=== PATIENT | male | born 1965 | race Two or more races ===

== ENCOUNTER 2018-04-27 09:42 | Emergency (ER) | payer OTHER ==
[2018-04-27 09:53] VITALS: BP 96/61; PULSE 62; TEMP 98.6; BMI 33.2
[2018-04-27] MEDS ORDERED: INDOMETHACIN 50 MG CAPSULE PO ONE (10:08)
[2018-04-27] MEDS ORDERED: predniSONE 20 MG TABLET (UD) PO ONE (10:08)
[2018-04-27] MEDS ORDERED: predniSONE 20 MG TABLET (UD) ONE (10:11)
--- NOTE | 2018-04-27 10:14 | PDOC ---
History of Present Illness - General Chief Complaint: Edema Stated Complaint: RT FOOT PAIN Time Seen by Provider: 04/27/18 09:59 History Source: Patient Exam Limitations: No Limitations - History of Present Illness Initial Comments: 04/27/18 15:30 52 yr male c/o history of gout recently relocated to [place] from [facility] he ate a bag of M&M candy yesterday and today woke up with pain to the right great toe, redness noted with swelling. no fever no chills. 04/27/18 15:30 Past History - Past Medical History Allergies/Adverse Reactions: Allergies Allergy/AdvReac Type Severity Reaction Status Date / Time No Known Allergies Allergy Verified 04/27/18 10:01 Home Medications: Ambulatory Orders Indomethacin [Indocin -] 50 mg PO BID 04/27/18 Lisinopril 20 mg PO DAILY 04/27/18 Prednisone [Deltasone] 20 mg PO BID #14 tablet 04/27/18 COPD: No CHF: No HTN: Yes Other medical history: gout - Immunization History Immunization Up to Date: No - Suicide/Smoking/Psychosocial Hx Smoking History: Current some day smoker Have you smoked in the past 12 months: No Information on smoking cessation initiated: No Hx Alcohol Use: No Drug/Substance Use Hx: No Substance Use Type: None Review of Systems - Review of Systems Able to Perform ROS?: Yes Is the patient limited Swedish proficient: No Constitutional: No: Symptoms Reported HEENTM: No: Symptoms Reported Respiratory: No: Symptoms reported Cardiac (ROS): No: Symptoms Reported ABD/GI: No: Symptoms Reported Musculoskeletal: Yes: Symptoms Reported *Physical Exam - Vital Signs Last Vital Signs Temp Pulse Resp BP Pulse Ox 98.6 F 62 16 96/61 98 04/27/18 09:49 04/27/18 09:49 04/27/18 09:49 04/27/18 09:49 04/27/18 09:49 - Physical Exam General Appearance: Yes: Nourished, Appropriately Dressed HEENT: positive: EOMI, HUGO Neck: positive: Supple. negative: Tender Respiratory/Chest: positive: Lungs Clear, Normal Breath Sounds. negative: Chest Tender Cardiovascular: positive: Regular Rhythm, Regular Rate Musculoskeletal: positive: Normal Inspection Extremity: positive: Normal Capillary Refill, Normal Inspection, Normal Range of Motion, Tender (red tender great toe right foot ), Other Integumentary: positive: Normal Color, Dry, Warm Medical Decision Making - Medical Decision Making 04/27/18 15:36 cc: gout flare up right great toe, same symptoms in the past no fever no chills pt tookk indocin 50mg at 630am will start prednisone continue indocin follow up with podiatry as discussed pt understands the dc inst is aware as well, will avoid chocolate meds as directed, warm compresses all questions asked and answered at discharge *DC/Admit/Observation/Transfer Diagnosis at time of Disposition: Gout Qualifiers: Gout site: toe Gout etiology: other secondary cause Chronicity: acute Laterality: right Qualified Code(s): M10.471 - Other secondary gout, right ankle and foot - Discharge Dispostion Disposition: HOME Condition at time of disposition: Improved - Prescriptions Prescriptions: Prednisone [Deltasone] 20 mg PO BID #14 tablet - Referrals Referrals: Stuart Deal MD [Staff Physician] - Moo Blanchard MD [Staff Physician] - - Patient Instructions Additional Instructions: take prednisone as directed next dose tomorrow morning take indocin 3 times a day as directed, next dose at 230pm apply warm compresses to the toe follow with the onboarding specialist Dr. Blanchard call today to make appointment follow with Dr. Deal for primary care return if fever chills any worsening pain - Post Discharge Activity
== END 2018-04-27 10:33 | disposition home or self-care (01) ==
LOC: JERFT 09:42
DX: M10.471 Other secondary gout, right ankle and foot (principal); F17.210 Nicotine dependence, cigarettes, uncomplicated; I10 Essential (primary) hypertension
CPT/HCPCS: 99281-25

== ENCOUNTER 2018-11-10 07:51 | Emergency (ER) | payer OTHER ==
[2018-11-10 08:15] VITALS: BP 138/81; PULSE 70; TEMP 97.9; BMI 36.6
--- NOTE | 2018-11-10 08:52 | PDOC ---
History of Present Illness - General Chief Complaint: Pain Stated Complaint: GOUT PROBLEM Time Seen by Provider: 11/10/18 08:29 History Source: Patient Exam Limitations: No Limitations - History of Present Illness Initial Comments: 11/10/18 09:00 Patient came for evaluation of acute and worsening exacerbation of gout. Suffers frequently in left foot and great toe. Uses ibuprofen. States has never seen a specialist[facility]. Occurred: reports: last week Severity: reports: moderate, severe Pain Location: reports: lower extremity (lef tfoot and great toe) Method of Injury: Yes: unknown Associated Symptoms (Fall): denies symptoms Past History - Travel Traveled outside of the country in the last 30 days: No Close contact w/someone who was outside of country & ill: No - Past Medical History Allergies/Adverse Reactions: Allergies Allergy/AdvReac Type Severity Reaction Status Date / Time No Known Allergies Allergy Verified 11/10/18 08:11 Home Medications: Ambulatory Orders Indomethacin [Indocin -] 50 mg PO BID 04/27/18 Lisinopril 20 mg PO DAILY 04/27/18 Prednisone [Deltasone] 20 mg PO BID #14 tablet 04/27/18 Indomethacin [Indocin -] 50 mg PO BID #60 capsule 11/10/18 predniSONE [Deltasone -] 20 mg PO BID #10 tablet 11/10/18 COPD: No CHF: No HTN: Yes Hypercholesterolemia: Yes - Immunization History Immunization Up to Date: No - Suicide/Smoking/Psychosocial Hx Smoking History: Never smoked Have you smoked in the past 12 months: No Hx Alcohol Use: No Drug/Substance Use Hx: No Substance Use Type: None Review of Systems - Review of Systems Able to Perform ROS?: Yes Is the patient limited Romansh proficient: Yes Constitutional: Yes: Symptoms Reported, See HPI, Malaise. No: Fever HEENTM: Yes: See HPI. No: Symptoms Reported Respiratory: No: Symptoms reported Musculoskeletal: Yes: Symptoms Reported, See HPI, Gout, Joint Swelling, Joint Stiffness Integumentary: Yes: Symptoms Reported, See HPI, Erythema Neurological: No: Symptoms reported All Other Systems: Reviewed and Negative *Physical Exam - Vital Signs Last Vital Signs Temp Pulse Resp BP Pulse Ox 97.9 F 70 18 138/81 99 11/10/18 08:12 11/10/18 08:12 11/10/18 08:12 11/10/18 08:12 11/10/18 08:12 - Physical Exam General Appearance: Yes: Nourished, Appropriately Dressed, Apparent Distress, Moderate Distress HEENT: positive: HUGO, Normal ENT Inspection, TMs Normal, Pharynx Normal Neck: positive: Supple Musculoskeletal: positive: Decreased Range of Motion. negative: Normal Inspection Extremity: negative: Normal Inspection, Normal Range of Motion (limited range of motion with heat, point tenderness, and swelling to first metatarsal extending to great toe and midfoot. Able to move toes but with tenderness. Walks with cane and significant limp. All consistent patient reports with his gout flares. There is no puncture wound, any ulcerations, any evidence of open wound to foot or between toes.) Integumentary: positive: Dry, Warm, Erythema Neurologic: positive: firmware developer II-XII NML intact, Fully Oriented, Alert, Normal Mood/ Affect, Normal Response, Motor Strength 5/5 Progress Note - Progress Note Progress Note: Gout exacerbation, will treat with prednisone and indomethacin. Patient encouraged to follow-up at [place] for frequent gout exacerbations. *DC/Admit/Observation/Transfer Diagnosis at time of Disposition: Gout Qualifiers: Gout site: foot Gout etiology: unspecified cause Chronicity: acute Laterality: left Qualified Code(s): M10.9 - Gout, unspecified - Discharge Dispostion Disposition: HOME Condition at time of disposition: Stable Decision to Admit order: No - Prescriptions Prescriptions: Indomethacin [Indocin -] 50 mg PO BID #60 capsule predniSONE [Deltasone -] 20 mg PO BID #10 tablet - Referrals Referrals: Sasha Zavala MD [Primary Care Provider] - - Patient Instructions Printed Discharge Instructions: DI for Gout Additional Instructions: Rest, ice to area on and off for 15 minutes 4-6 times a day Avoid heavy lifting or exercise until pain and swelling is resolved or until further directed Keep area highly elevated to reduce swelling Followup with orthopedist/ teletypesetter in one to 2 days if not improving, if significantly improved may wait one week for followup with private physician Indomethacin, 50 mg equaled 2 tablets every 12 hours with food in her stomach for the next 2-3 days and then reduced by half= 25mg tab twice a day for pain until resolves Prednisone 20 mg twice a day for 5 days - Post Discharge Activity
== END 2018-11-10 09:05 | disposition home or self-care (01) ==
LOC: JERFT 07:51
DX: M10.9 Gout, unspecified (principal); I10 Essential (primary) hypertension; E78.00 Pure hypercholesterolemia, unspecified
CPT/HCPCS: 99281-25

== ENCOUNTER 2019-02-02 08:52 | Emergency (ER) | payer OTHER ==
[2019-02-02 09:00] VITALS: BP 138/77; PULSE 85; TEMP 97.8; BMI 34.7
[2019-02-02] MEDS ORDERED: KETOROLAC TROMETHAMINE 60 MG/2 ML VIAL IM ONE (09:10)
[2019-02-02] MEDS ORDERED: KETOROLAC TROMETHAMINE 60 MG/2 ML VIAL ONE (09:12)
--- NOTE | 2019-02-02 09:29 | PDOC ---
History of Present Illness - General Chief Complaint: Edema Stated Complaint: UNABLE TO MOVE RT ARM Time Seen by Provider: 02/02/19 09:05 History Source: Patient Exam Limitations: Clinical Condition - History of Present Illness Initial Comments: 02/02/19 09:24 Patient with past medical history of hypertension on meds present with complaint of 2 day history of right elbow pain and swelling after being bit by a bug of unknown number of days .patient does not know what pain to right elbow but reported elbow has been swelling up with pain radiating to right forearm and fingers. Denies right upper arm pain. Denies fever, chills, weakness, numbness or tingling sensation. Denies any other symptoms. Patient did not take anything for symptoms Timing/Duration: other (2 days) Past History - Past Medical History Allergies/Adverse Reactions: Allergies Allergy/AdvReac Type Severity Reaction Status Date / Time No Known Allergies Allergy Verified 02/02/19 08:56 Home Medications: Ambulatory Orders Indomethacin [Indocin -] 50 mg PO BID 04/27/18 Lisinopril 20 mg PO DAILY 04/27/18 Prednisone [Deltasone] 20 mg PO BID #14 tablet 04/27/18 Indomethacin [Indocin -] 50 mg PO BID #60 capsule 11/10/18 predniSONE [Deltasone -] 20 mg PO BID #10 tablet 11/10/18 Doxycycline Hyclate 100 mg PO BID 14 Days #28 tablet 02/02/19 Naproxen 500 mg PO BID PRN #20 tablet 02/02/19 Cardiac Disorders: Yes (CHF) COPD: No CHF: No HTN: Yes Hypercholesterolemia: Yes - Immunization History Immunization Up to Date: No - Suicide/Smoking/Psychosocial Hx Smoking History: Current every day smoker Have you smoked in the past 12 months: No Information on smoking cessation initiated: No Hx Alcohol Use: No Drug/Substance Use Hx: No Substance Use Type: None Review of Systems - Review of Systems Able to Perform ROS?: Yes Is the patient limited Yi proficient: No Constitutional: No: Malaise, Weakness HEENTM: No: Symptoms Reported Respiratory: No: Symptoms reported Cardiac (ROS): No: Symptoms Reported ABD/GI: No: Symptoms Reported Musculoskeletal: Yes: Symptoms Reported, See HPI, Joint Swelling (right elbow), Muscle Pain (right elbow). No: Muscle Weakness Integumentary: Yes: Symptoms Reported, See HPI, Other (bug bite nehemiah to back of right elbow). No: Erythema, Flushing, Rash Neurological: No: Symptoms reported, Numbness, Paresthesia, Tingling All Other Systems: Reviewed and Negative *Physical Exam - Vital Signs Last Vital Signs Temp Pulse Resp BP Pulse Ox 97.8 F 85 18 138/77 98 02/02/19 08:58 02/02/19 08:58 02/02/19 08:58 02/02/19 08:58 02/02/19 08:58 - Physical Exam Comments: 02/02/19 09:30 GENERAL: Well developed, well nourished. Awake and alert acute distress. PULMONARY: No evidence of respiratory distress. MUSCULOSKELETAL : mild swelling to olecranon of right elbow with moderate tenderness over dorsal aspect of right elbow. Small inset bite nehemiah to olecranon of right elbow. No joint effusion on exam. No bony deformities EXTREMITIES: No cyanosis. No clubbing. Mild swelling over olecranon of right elbow SKIN: Warm and dry. Normal capillary refill. No rashes. NEUROLOGICAL: Alert, awake, appropriate. No motor deficits in the lower extremities. Gait is normal without ataxia. PSYCHIATRIC: Cooperative. Good eye contact. Appropriate mood and affect. General Appearance: Yes: Nourished, Appropriately Dressed, Apparent Distress, Moderate Distress ED Treatment Course - RADIOLOGY Radiology Studies Ordered: Category Date Time Status ELBOW-RIGHT [RAD] Stat Radiology 02/02/19 09:09 Ordered - Medications Given in the ED: ED Medications Discontinued Medications Generic Name Dose Route Start Last Admin Trade Name Freq PRN Reason Stop Dose Admin Ketorolac Tromethamine 60 mg 02/02/19 09:10 02/02/19 09:19 Toradol Injection - IM 02/02/19 09:11 60 mg ONCE ONE Administration Medical Decision Making - Medical Decision Making 02/02/19 09:26 Patient with past medical history of hypertension on meds present with complaint of 2 day history of right elbow pain and swelling after being bit by a bug of unknown number of days .patient does not know what pain to right elbow but reported elbow has been swelling up with pain radiating to right forearm and fingers. Denies right upper arm pain. Denies fever, chills, weakness, numbness or tingling sensation. Denies any other symptoms. Patient did not take anything for symptoms Exam significant for mild swelling to olecranon of right elbow around area of small bug bite nehemiah olecranon of right elbow with moderate tenderness over olecranon of right elbow. No skin erythema or increased warmth. No evidence of joint effusion on exam. Symptoms likely reaction from bug bite versus less likely Lyme disease given no erythema migrans or rash to skin. Toradol 60 mg IM given for pain. X-ray of left elbow ordered to rule out acute pathology 02/02/19 09:57 X-ray of right elbow shows no acute fracture or dislocation or pathology. Patient will be treated on doxycycline twice a day for 2 weeks for joint infection and naproxen when necessary for pain with orthopedist follow-up *DC/Admit/Observation/Transfer Diagnosis at time of Disposition: Pain and swelling of right elbow Bug bite Qualifiers: Encounter type: initial encounter Qualified Code(s): W57.XXXA - Bitten or stung by nonvenomous insect and other nonvenomous arthropods, initial encounter - Discharge Dispostion Disposition: HOME Condition at time of disposition: Stable Decision to Admit order: No - Prescriptions Prescriptions: Doxycycline Hyclate 100 mg PO BID 14 Days #28 tablet Naproxen 500 mg PO BID PRN #20 tablet PRN Reason: pain - Referrals Referrals: Sasha Zavala MD [Primary Care Provider] - Michael Pinto DO [Staff Physician] - - Patient Instructions Printed Discharge Instructions: DI for Elbow Pain Additional Instructions: Your right elbow x-ray shows no acute fracture or dislocation. Your symptoms likely caused by the bug bite and take prescribed medication as prescribed. Follow-up referred orthopedics for follow-up assessment - Post Discharge Activity
== END 2019-02-02 09:59 | disposition home or self-care (01) ==
LOC: JERFT 08:52
PROC: 3E0233Z Introduction of Anti-inflammatory into Muscle, Percutaneous Approach (ICD-10-PCS; principal; 2019-02-02)
DX: S50.361A Insect bite (nonvenomous) of right elbow, initial encounter (principal); W57.XXXA Bitten or stung by nonvenomous insect and other nonvenomous arthropods, initial encounter; Y93.89 Activity, other specified; Y92.89 Other specified places as the place of occurrence of the external cause; Y99.8 Other external cause status
CPT/HCPCS: 73070-TC-RT-FY; 99282-25

== ENCOUNTER 2020-01-14 13:29 | Emergency (ER) | payer OTHER ==
[2020-01-14 13:37] VITALS: BP 129/82; PULSE 100; TEMP 98.2; BMI 37.5
--- NOTE | 2020-01-14 13:38 | PDOC ---
Rapid Medical Evaluation Chief Complaint: Pain Time Seen by Provider: 01/14/20 13:30 Medical Evaluation: Allergies Allergy/AdvReac Type Severity Reaction Status Date / Time No Known Allergies Allergy Verified 02/02/19 08:56 01/14/20 13:35 I performed a brief in-person evaluation of this patient. Pt is a 54 y/o male with CHF, CAD, gout with R foot and ankle swelling and pain for the last 4 days. Took Tylenol, ibuprofen, colchicine, allopurinol without any relief. Denies any injury. Pertinent physical exam findings: R foot and ankle swelling and tender to palpation, brace in place I have ordered the following: R foot and ankle xr Patient to proceed to ED for further evaluation. Discharge Disposition - Diagnosis Right foot pain - Referrals - Patient Instructions - Post Discharge Activity
--- NOTE | 2020-01-14 14:15 | PDOC ---
History of Present Illness - General Chief Complaint: Pain Stated Complaint: RT FOOT PAIN Time Seen by Provider: 01/14/20 13:30 History Source: Patient Exam Limitations: No Limitations - History of Present Illness Initial Comments: 01/14/20 14:11 54-year-old male presents to ED with complaints of right foot swelling associated first with left ankle and left toe pain. Patient states has recurrent gout over the past year and is under the care of Dr. Lynn but states has had gout for numerous years. Patient denies any history of clots or poor circulation to his legs. Patient does state history of CHF but has no complaints of bilateral lower extremity swelling or difficulty breathing. Is this a multiple visit Asthma Patient?: No Timing/Duration: constant Severity: mild Associated Symptoms: reports: denies symptoms Past History - Travel History Traveled outside of the country in the last 30 days: No Close contact w/someone who was outside of country & ill: No - Medical History Allergies/Adverse Reactions: Allergies Allergy/AdvReac Type Severity Reaction Status Date / Time No Known Allergies Allergy Verified 01/14/20 13:37 Home Medications: Ambulatory Orders Indomethacin [Indocin -] 50 mg PO BID 04/27/18 Lisinopril 20 mg PO DAILY 04/27/18 Indomethacin [Indocin -] 50 mg PO BID #60 capsule 11/10/18 Atorvastatin Ca [Lipitor] 0 mg PO HS 01/14/20 Colchicine 0 mg PO DAILY 01/14/20 Dabigatran Etexilate Mesylate [Pradaxa -] 0 mg PO ONCE 01/14/20 Metoprolol Succinate [Toprol Xl] 0 mg PO DAILY 01/14/20 Cardiac Disorders: Yes (CHF) COPD: No CHF: No HTN: Yes Hypercholesterolemia: Yes Other medical history: gout - Immunization History Immunization Up to Date: No - Psycho-Social/Smoking History Patient Lives Alone: No Lives with/in: spouse/SO Smoking History: Never smoked Have you smoked in the past 12 months: No - Substance Abuse Hx (Audit-C & DAST Scrn) How often the patient has a drink containing alcohol: Never Score: In Men: 4 or > Positive; In Women: 3 or > Positive: 0 Screen Result (Pos requires Nsg. Audit-10AR): Negative Review of Systems - Review of Systems Able to Perform ROS?: No Is the patient limited Kinyarwanda proficient: No Constitutional: No: Symptoms Reported HEENTM: No: Symptoms Reported Respiratory: No: Symptoms reported Cardiac (ROS): Yes: Edema ABD/GI: No: Symptoms Reported : No: Symptoms Reported Musculoskeletal: Yes: Joint Pain, Joint Swelling Integumentary: No: Symptoms Reported Neurological: No: Symptoms reported Endocrine: No: Symptoms Reported *Physical Exam - Vital Signs Last Vital Signs Temp Pulse Resp BP Pulse Ox 98.2 F 100 H 18 129/82 98 01/14/20 13:34 01/14/20 13:34 01/14/20 13:34 01/14/20 13:34 01/14/20 13:34 - Physical Exam General Appearance: Yes: Nourished, Appropriately Dressed. No: Apparent Distress Respiratory/Chest: positive: Lungs Clear, Normal Breath Sounds. negative: Respiratory Distress, Accessory Muscle Use Cardiovascular: positive: Regular Rhythm, Tachycardia. negative: Murmur Vascular Pulses: Dorsalis-Pedis (R): 2+ Extremity: positive: Normal Capillary Refill, Normal Range of Motion, Tender (Over dorsal aspect of 2nd-5th toes along the 2nd-4th metatarsals ) Integumentary: positive: Normal Color, Warm, Moist ([]) Neurologic: positive: Motor Strength 5/5 (Ambulatory with limp) ED Treatment Course - RADIOLOGY Radiology Studies Ordered: Category Date Time Status DUPLEX VASCUL US-1 LEG [US] Stat Ultrasound 01/14/20 13:59 Ordered Medical Decision Making - Medical Decision Making 01/14/20 14:15 Chief complaint : Right ankle right toe pain along with swelling for the past 4 days unrelieved with allopurinol and Motrin. Patient with history of recurrent gout under the care of Dr. Lynn. No other complaints. Exam: Patient tender to the 2nd-5th toes along with 2nd-4th metatarsal of the right foot diffuse swelling over foot and ankle. 2+ pedal pulse. Plan: Duplex to rule out other etiologies such as vascular compromise otherwise Percocet p.o. colchicine 1.2 01/14/20 15:16 Ultrasound negative for acute pathology. Patient will be given 1.2 mg of colchicine now and a prescription for 0.6 to take in 1 hour along with a prescription for Percocet. Patient to discuss options with Dr. Lynn his clinical molecular geneticist in regards to recurrent gout. Patient also recommended to follow-up with the winter intern discussed diet options in regards to gout Discharge - Discharge Information Problems reviewed: Yes Clinical Impression/Diagnosis: Gout Condition: Good Disposition: HOME - Follow up/Referral Referrals: Darinel Lynn MD [Staff Physician] - - Patient Discharge Instructions Patient Printed Discharge Instructions: Higher Vitamin C Intake Associated With Lower Risk of Gout, Gout (Alternative Therapy) Additional Instructions: Take 0.6 mg of colchicine in 1 hour. Take Percocet as needed for pain. Discuss options with Dr. Lynn his clinical molecular geneticist in regards to recurrent gout. Patient also recommended to follow-up with the winter intern discussed diet options in regards to gout - Post Discharge Activity
[2020-01-14] MEDS ORDERED: COLCHICINE 0.6 MG TAB PO ONE (14:16)
== END 2020-01-14 15:29 | disposition home or self-care (01) ==
LOC: JERFT 13:29
DX: M79.671 Pain in right foot (principal)
CPT/HCPCS: 73610-TC-RT-FY; 73630-TC-RT-FY; 93971-TC; 99285-25

== ENCOUNTER 2020-07-22 09:15 | Emergency (ER) | payer OTHER ==
[2020-07-22 09:25] VITALS: BP 131/86; PULSE 89; TEMP 98; BMI 36.9
[2020-07-22] MEDS ORDERED: COLCHICINE 0.6 MG TAB PO ONE (09:58)
[2020-07-22] MEDS ORDERED: INDOMETHACIN 50 MG CAPSULE PO ONE (10:00)
[2020-07-22] MEDS ORDERED: COLCHICINE 0.6 MG CAP ONE ×2 (10:06→11:13)
[2020-07-22 10:51] LABS: BASO % 0.5 % (0-2.0); EOS % 1.8 % (0-4.5); HEMATOCRIT 40.3 % (35.4-49); HEMOGLOBIN 13.8 GM/dL (11.7-16.9); MCH 30.5 pg (25.7-33.7); MCHC 34.2 g/dl (32.0-35.9); MEAN CELL VOLUME 89.1 fl (80-96); MONO % 5.1 % (3.8-10.2); NEUT % 73.6 % (42.8-82.8); PLATELET COUNT 212 K/MM3 (134-434); RBC 4.52 M/mm3 (4.00-5.60); RDW 13.7 % (11.9-15.9); WHITE BLOOD COUNT 8.9 K/mm3 (4.0-10.0)
[2020-07-22 11:04] LABS: ALBUMIN 3.8 g/dl (3.4-5.0); BLOOD UREA NITROGEN 8.9 mg/dL (7-18); CALCIUM 9.4 mg/dL (8.5-10.1)
[2020-07-22 11:07] LABS: URIC ACID 5.5 mg/dL (2.6-7.2)
[2020-07-22 11:09] LABS: BILIRUBIN,TOTAL 0.5 mg/dL (0.2-1)
[2020-07-22 11:10] LABS: TOT PROT 7.4 g/dl (6.4-8.2)
[2020-07-22] MEDS ORDERED: COLCHICINE 0.6 MG CAP PO ONE (11:10)
[2020-07-22 12:00] LABS: ERYTHROCYTE SEDIMENTATION RATE 22 mm/hr (0-20)
== END 2020-07-22 11:40 | disposition home or self-care (01) ==
LOC: JERFT 09:15 → JER 09:15 → JERFT 11:40
DX: R60.9 Edema, unspecified (principal); Z87.39 Personal history of other diseases of the musculoskeletal system and connective tissue
CPT/HCPCS: 36415; 80053; 84550; 85025; 85651; 86140; 99284-25

== ENCOUNTER 2021-03-06 16:13 | Inpatient (IN) | payer OTHER ==
[2021-03-06 18:00] LABS: BASO % 0.6 % (0-2.0); EOS % 1.9 % (0-4.5); HEMATOCRIT 38.9 % (35.4-49); HEMOGLOBIN 13.4 GM/dL (11.7-16.9); LYMPH % 20.4 % (8-40); MCH 30.6 pg (25.7-33.7); MCHC 34.4 g/dl (32.0-35.9); MEAN CELL VOLUME 88.8 fl (80-96); MEAN PLT VOLUME 8.3 fl (7.5-11.1); MONO % 5.9 % (3.8-10.2); NEUT % 71.2 % (42.8-82.8); PLATELET COUNT 165 10^3/uL (134-434); RBC 4.38 M/mm3 (4.00-5.60); WHITE BLOOD COUNT 7.9 K/mm3 (4.0-10.0)
[2021-03-06 18:21] LABS: ALBUMIN 3.5 g/dl (3.4-5.0); BLOOD UREA NITROGEN 12.8 mg/dL (7-18); CALCIUM 8.7 mg/dL (8.5-10.1); MAGNESIUM 2.4 mg/dL (1.8-2.4)
[2021-03-06 18:24] LABS: CREATININE 1.1 mg/dL (0.55-1.3)
[2021-03-06 18:26] LABS: BILIRUBIN,TOTAL 0.3 mg/dL (0.2-1)
[2021-03-06] MEDS ORDERED: ACETAMINOPHEN 1000 MG/100 ML VIAL (NON FORMULARY) IVPB ONE (18:46)
[2021-03-06 18:51] LABS: INR 1.03 (0.83-1.09); PROTHROMBIN TIME (PATIENT) 12.7 SEC (9.7-13.0)
[2021-03-06 18:54] LABS: ACTIVATED PTT 30.3 SECONDS (25.2-36.5)
[2021-03-06] MEDS ORDERED: ACETAMINOPHEN INJECTION 100 ML IVPB ONE (19:10)
[2021-03-06] MEDS ORDERED: LIDOCAINE PATCH REMOVAL MC SCH (22:00)
[2021-03-06] MEDS ORDERED: morphine CARPU-JECT 4 MG/1 ML DISP.SYRIN IVPUSH ONE (22:18)
[2021-03-06] MEDS ORDERED: LIDOCAINE 5% TOPICAL PATCH TP ONE (22:18)
[2021-03-06] MEDS ORDERED: LIDOCAINE 5% TOPICAL PATCH ONE (22:24)
[2021-03-06] MEDS ORDERED: morphine SULFATE 4 MG/ML VIAL ONE (22:24)
[2021-03-07] MEDS ORDERED: MORPHINE SULFATE 2 MG/ML VIAL IVPUSH PRN (01:47)
[2021-03-07] MEDS ORDERED: NICOTINE 7 MG/24 HOURS TOPICAL PATCH TD PRN (01:54)
[2021-03-07 04:38] VITALS: BMI 37.0
[2021-03-07 09:24] LABS: BASO % 0.6 % (0-2.0); EOS % 2.4 % (0-4.5); HEMATOCRIT 40.2 % (35.4-49); LYMPH % 25.8 % (8-40); MCHC 34.7 g/dl (32.0-35.9); MEAN CELL VOLUME 89.2 fl (80-96); MEAN PLT VOLUME 8.7 fl (7.5-11.1); MONO % 6.6 % (3.8-10.2); NEUT % 64.6 % (42.8-82.8); PLATELET COUNT 171 10^3/uL (134-434); RBC 4.51 M/mm3 (4.00-5.60); RDW 15.4 % (11.9-15.9); WHITE BLOOD COUNT 7.7 K/mm3 (4.0-10.0)
[2021-03-07 10:00] LABS: MAGNESIUM 2.4 mg/dL (1.8-2.4)
[2021-03-07] MEDS ORDERED: LISINOPRIL 20 MG TABLET PO SCH (10:00)
[2021-03-07] MEDS ORDERED: metoPROLOL SUCCINATE 25 MG TAB.SR.24H (FP) PO SCH (10:00)
[2021-03-07] MEDS ORDERED: APIXABAN 5 MG TABLET PO SCH (10:00)
[2021-03-07] MEDS ORDERED: ENOXAPARIN NA (PORCINE) 40 MG/0.4 ML DISP.SYRIN SQ SCH (10:00)
[2021-03-07 10:01] LABS: CALCIUM 8.9 mg/dL (8.5-10.1)
[2021-03-07 10:02] LABS: ALBUMIN 3.7 g/dl (3.4-5.0); BLOOD UREA NITROGEN 12.3 mg/dL (7-18)
[2021-03-07 10:03] LABS: URIC ACID 7.3 mg/dL (2.6-7.2)
[2021-03-07 10:04] LABS: TOT PROT 7.3 g/dl (6.4-8.2)
[2021-03-07 10:05] LABS: PHOSPHOROUS 3.9 mg/dL (2.5-4.9)
[2021-03-07 10:06] LABS: BILIRUBIN,TOTAL 0.4 mg/dL (0.2-1)
[2021-03-07] MEDS ORDERED: CYCLOBENZAPRINE HCL 10 MG TABLET (FP) PO SCH (14:00)
[2021-03-07] MEDS ORDERED: GABAPENTIN 300 MG CAPSULE PO SCH (14:00)
[2021-03-07 15:09] VITALS: BP 143/75; PULSE 62; TEMP 97.8
[2021-03-07] MEDS ORDERED: NAPROXEN 500 MG TABLET PO SCH (22:00)
[2021-03-07] MEDS ORDERED: ATORVASTATIN CA 20 MG TABLET (FP) PO SCH (22:00)
== END 2021-03-07 17:37 | disposition home or self-care (01) | DRG 552 ==
LOC: JER 16:13 → JERBED 22:17 → J5S 03-07 03:53
PROVIDERS: ADMIT Internal Medicine
DX: M48.07 Spinal stenosis, lumbosacral region (principal); I50.32 Chronic diastolic (congestive) heart failure; I48.91 Unspecified atrial fibrillation; Z79.01 Long term (current) use of anticoagulants; M10.9 Gout, unspecified; I11.0 Hypertensive heart disease with heart failure; F43.10 Post-traumatic stress disorder, unspecified; E66.9 Obesity, unspecified; G47.33 Obstructive sleep apnea (adult) (pediatric); Z68.37 Body mass index [BMI] 37.0-37.9, adult; F32.9 Major depressive disorder, single episode, unspecified; F41.9 Anxiety disorder, unspecified; F17.210 Nicotine dependence, cigarettes, uncomplicated; M54.16 Radiculopathy, lumbar region; R73.03 Prediabetes; M54.30 Sciatica, unspecified side; G47.00 Insomnia, unspecified; M47.894 Other spondylosis, thoracic region
CPT/HCPCS: 36415; 72157-TC; 72158-TC; 80053; 80061; 83036; 83735; 84100; 84550; 85025; 85610; 85730; 86850; 86900; 86901; 93005; 93010; 97116-GP; 97161-GP; 99285-25; C9803; J0131; U0003; U0005

== ENCOUNTER 2021-04-04 04:15 | Day surgery (SDC) | payer OTHER ==
[2021-04-03 15:28] VITALS: BMI 36.9
[2021-04-04] MEDS ORDERED: DEXAMETHASONE SOD PHOSPHATE 10 MG/1 ML VIAL IVPUSH ONE (09:06)
[2021-04-04] MEDS ORDERED: LIDOCAINE HCL 1%, 10 MG/ML (20ML VIAL) PNB ONE (09:06)
[2021-04-04] MEDS ORDERED: IOHEXOL 180 MG/1 ML ML IJ ONE (09:06)
[2021-04-04 10:49] VITALS: BP 152/80; PULSE 70; TEMP 97.9
== END 2021-04-04 10:30 | disposition home or self-care (01) ==
LOC: JASU-SURG 04:15
PROVIDERS: ATTEND Pain Medicine Pain Medicine
PROC: 3E0R33Z Introduction of Anti-inflammatory into Spinal Canal, Percutaneous Approach (ICD-10-PCS; 2021-04-04)
PROC: B01BYZZ Fluoroscopy of Spinal Cord using Other Contrast (ICD-10-PCS; 2021-04-04)
PROC: 3E0R3BZ Introduction of Anesthetic Agent into Spinal Canal, Percutaneous Approach (ICD-10-PCS; principal; 2021-04-04 08:30)
DX: M54.16 Radiculopathy, lumbar region (principal); M48.061 Spinal stenosis, lumbar region without neurogenic claudication
CPT/HCPCS: 76000-TC-FY; J1100

== ENCOUNTER 2021-05-02 04:19 | Day surgery (SDC) | payer OTHER ==
[2021-04-30 13:49] VITALS: BMI 36.9
[2021-05-02] MEDS ORDERED: BUPIVACAINE HCL/PF 0.75% 10 ML VIAL ONE (07:12)
[2021-05-02] MEDS ORDERED: LIDOCAINE HCL/PF 1% SDV 5ML VIAL ONE (07:15)
[2021-05-02 08:26] VITALS: TEMP 97.9
[2021-05-02] MEDS ORDERED: LIDOCAINE HCL 1% PRESERVATIVE FREE - 30ML VIAL IJ ONE ×3 (11:01→11:02)
[2021-05-02] MEDS ORDERED: IOHEXOL 180 MG/1 ML ML IJ ONE ×4 (11:02→11:13)
[2021-05-02] MEDS ORDERED: BUPIVACAINE HCL/PF 0.75% 10 ML VIAL NR ONE ×4 (11:03→11:14)
[2021-05-02 11:33] VITALS: BP 115/59; PULSE 54
== END 2021-05-02 12:00 | disposition home or self-care (01) ==
LOC: JASU-SURG 04:19
PROVIDERS: ATTEND Pain Medicine Pain Medicine
PROC: BR16YZZ Fluoroscopy of Lumbar Facet Joint(s) using Other Contrast (ICD-10-PCS; 2021-05-02)
PROC: 3E0T3BZ Introduction of Anesthetic Agent into Peripheral Nerves and Plexi, Percutaneous Approach (ICD-10-PCS; principal; 2021-05-02 09:30)
DX: M47.816 Spondylosis without myelopathy or radiculopathy, lumbar region (principal)
CPT/HCPCS: 76000-TC-FY

== ENCOUNTER 2021-07-01 09:00 | Day surgery (SDC) | payer OTHER ==
[2021-06-30 09:50] VITALS: BMI 36.9
[2021-07-01] MEDS ORDERED: IOHEXOL 180 MG/1 ML ML IJ ONE (10:37)
[2021-07-01] MEDS ORDERED: LIDOCAINE 1% P/F 10 MG/ML VIAL INF ONE (10:37)
[2021-07-01] MEDS ORDERED: BUPIVACAINE HCL/PF 0.75% 10 ML VIAL NR ONE (10:37)
[2021-07-01 11:20] VITALS: TEMP 98.8
[2021-07-01 11:49] VITALS: BP 130/80; PULSE 68
== END 2021-07-01 11:40 | disposition home or self-care (01) ==
LOC: JASU-SURG 09:00
PROVIDERS: ATTEND Pain Medicine Pain Medicine
PROC: 3E0T33Z Introduction of Anti-inflammatory into Peripheral Nerves and Plexi, Percutaneous Approach (ICD-10-PCS; 2021-07-01)
PROC: 3E0T3BZ Introduction of Anesthetic Agent into Peripheral Nerves and Plexi, Percutaneous Approach (ICD-10-PCS; principal; 2021-07-01 10:30)
DX: M47.816 Spondylosis without myelopathy or radiculopathy, lumbar region (principal)
CPT/HCPCS: 76000-TC-FY

== ENCOUNTER 2021-08-01 04:24 | Day surgery (SDC) | payer OTHER ==
[2021-07-25 12:47] VITALS: BMI 36.9
[2021-08-01] MEDS ORDERED: LIDOCAINE HCL/PF 2% SDV 5ML VIAL ONE (13:34)
[2021-08-01] MEDS ORDERED: IOHEXOL 180 MG/1 ML ML IJ ONE (14:22)
[2021-08-01] MEDS ORDERED: LIDOCAINE HCL/PF 2% SDV 5ML VIAL INF ONE (14:22)
[2021-08-01] MEDS ORDERED: LIDOCAINE HCL 1% PRESERVATIVE FREE - 30ML VIAL IJ ONE (14:28)
[2021-08-01] MEDS ORDERED: DEXAMETHASONE SOD PHOSPHATE 10 MG/1 ML VIAL IVPUSH ONE (14:30)
[2021-08-01] MEDS ORDERED: BUPIVACAINE HCL/PF 0.75% 10 ML VIAL NR ONE (14:30)
[2021-08-01 15:20] VITALS: BP 172/87; PULSE 60; TEMP 98
== END 2021-08-01 15:40 | disposition home or self-care (01) ==
LOC: JASU-SURG 04:24
PROVIDERS: ATTEND Pain Medicine Pain Medicine
PROC: 3E0T3TZ Introduction of Destructive Agent into Peripheral Nerves and Plexi, Percutaneous Approach (ICD-10-PCS; principal; 2021-08-01 14:00)
DX: M47.816 Spondylosis without myelopathy or radiculopathy, lumbar region (principal)
CPT/HCPCS: 76000-TC-FY; J1100

== ENCOUNTER 2021-09-05 04:21 | Day surgery (SDC) | payer OTHER ==
[2021-08-19 18:45] VITALS: BMI 36.9
[2021-09-05] MEDS ORDERED: BUPIVACAINE HCL/PF 0.75% 10 ML VIAL ONE (07:27)
[2021-09-05] MEDS ORDERED: LIDOCAINE HCL/PF 1% SDV 5ML VIAL ONE (07:27)
[2021-09-05] MEDS ORDERED: DEXAMETHASONE SOD PHOSPHATE 10 MG/1 ML VIAL IVPUSH ONE (11:40)
[2021-09-05] MEDS ORDERED: BUPIVACAINE HCL/PF 0.75% 10 ML VIAL PNB ONE (11:40)
[2021-09-05] MEDS ORDERED: IOHEXOL 180 MG/1 ML ML IJ ONE (11:40)
[2021-09-05] MEDS ORDERED: LIDOCAINE HCL/PF 2% SDV 5ML VIAL INF ONE (11:40)
[2021-09-05] MEDS ORDERED: LIDOCAINE HCL 1% PRESERVATIVE FREE - 30ML VIAL IJ ONE (11:42)
[2021-09-05] MEDS ORDERED: DEXAMETHASONE SOD PHOSPHATE 10 MG/1 ML VIAL ONE (13:42)
[2021-09-05] MEDS ORDERED: LIDOCAINE HCL/PF 2% SDV 5ML VIAL ONE (13:42)
[2021-09-05 14:22] VITALS: TEMP 97.9
[2021-09-05 14:38] VITALS: BP 139/78; PULSE 68
== END 2021-09-05 12:45 | disposition home or self-care (01) ==
LOC: JASU-SURG 04:21
PROVIDERS: ATTEND Pain Medicine Pain Medicine
PROC: 3E0T3TZ Introduction of Destructive Agent into Peripheral Nerves and Plexi, Percutaneous Approach (ICD-10-PCS; principal; 2021-09-05 18:00)
PROC: BR16YZZ Fluoroscopy of Lumbar Facet Joint(s) using Other Contrast (ICD-10-PCS; 2021-09-05 18:00)
DX: M47.816 Spondylosis without myelopathy or radiculopathy, lumbar region (principal)
CPT/HCPCS: 76000-TC-FY; J1100